=== PATIENT | female | born 1950 ===

== ENCOUNTER 2017-08-24 09:21 | Outpatient (CLI) | payer OTHER ==
[~2017-08-24] VITALS: Ht 167.6 cm; Wt 79.8 kg
[~2017-08-24 09:21] MED LIST: COZAAR100 MG PO; KEP PO
[2017-08-24] MEDS ORDERED: LIPO-FLAVONOID1 EACH PO (11:52)
== END 2017-08-24 09:40 | disposition home or self-care (01) ==
LOC: OFIC 805 09:21
DX: H81.11 Benign paroxysmal vertigo, right ear (principal)

== ENCOUNTER 2017-09-14 08:50 | Outpatient (CLI) | payer OTHER ==
[~2017-09-14] VITALS: Ht 152.4 cm; Wt 79.8 kg
[~2017-09-14 08:50] MED LIST changes: +LIPO-FLAVONOID1 EACH PO
[2017-09-14] MEDS ORDERED: LIPO-FLAVONOID1 EACH PO (09:54)
== END 2017-09-14 09:10 | disposition home or self-care (01) ==
LOC: OFIC 805 08:50
DX: H81.11 Benign paroxysmal vertigo, right ear (principal)

== ENCOUNTER 2018-10-25 10:54 | Outpatient (CLI) | payer OTHER | END 2018-10-25 10:59 | disposition home or self-care (01) | LOC: RAD 10:54 | DX: M19.91 Primary osteoarthritis, unspecified site (principal) ==

== ENCOUNTER → 2018-10-25 | Outpatient (CLI) | payer OTHER | END | disposition home or self-care (01) | LOC: RAD 07:47 | DX: N20.0 Calculus of kidney (principal); R31.29 Other microscopic hematuria ==

== ENCOUNTER 2018-10-27 09:08 | Outpatient (CLI) | payer OTHER | END 2018-10-27 10:10 | disposition home or self-care (01) | LOC: SONOGRAMA 09:08 → MAMO-SONO 09:15 → SONOGRAMA 10:10 | DX: M12.861 Other specific arthropathies, not elsewhere classified, right knee (principal) ==

== ENCOUNTER 2021-10-13 08:35 | Outpatient (CLI) | payer OTHER | END 2021-10-13 08:37 | disposition home or self-care (01) | LOC: MRI 08:35 | PROVIDERS: ATTEND Psychiatry & Neurology Neurology | DX: D32.9 Benign neoplasm of meninges, unspecified (principal) | CPT/HCPCS: 70552 ==